=== PATIENT | male | born 1960 | race Caucasian/White ===

== ENCOUNTER 2020-07-21 08:00 | Emergency (ER) | payer OTHER ==
[~2020-07-21] VITALS: Ht 188 cm; Wt 117.0 kg
[2020-07-21 08:44] VITALS: BP_SYST 135
[2020-07-21] MEDS ORDERED: KETOROLAC TROMETHAMINE 60 MG/2 ML VIAL IM ONE (09:15)
[2020-07-21 10:29] VITALS: BP_SYST 128
== END 2020-07-21 10:29 | disposition home or self-care (01) ==
LOC: SED 08:00
DX: M54.16 Radiculopathy, lumbar region (principal)
CPT/HCPCS: 72100; 96372; 99283; J1885